=== PATIENT | female | born 1960 | race Caucasian/White ===

== ENCOUNTER 2021-02-12 11:29 | Inpatient (IN) | payer MEDICARE ==
[~2021-02-12] VITALS: Ht 165.1 cm; Wt 83.9 kg
[~2021-02-12 11:29] MED LIST: OMEPRAZOLE
[2021-02-12] MEDS ORDERED: SODIUM CHLORIDE 0.9% 1,000 ML IV ONE ×2 (11:45→18:00)
[2021-02-12 12:21] LABS: Basophils # (auto) 0.1 10 ^3/uL (0-0.2); Basophils % (auto) 1.1 % (0.0-2.0); Eosinophils # (auto) 0.2 10 ^3/uL (0-0.8); Eosinophils % (auto) 2.7 % (0.0-7.0); Hematocrit 44.9 % (36.0-46.0); Hemoglobin 15.6 g/dL (12.2-16.2); Lymphocytes # (auto) 2.2 10 ^3/uL (0.4-5.4); Lymphocytes % (auto) 25.9 % (10.0-50.0); Mean Corpuscular Hemoglobin 30.9 pg (28.0-32.0); Mean Corpuscular Hgb Conc. 34.8 g/dL (32.0-36.0); Mean Corpuscular Volume 88.9 fL (80.0-100.0); Monocytes # (auto) 0.5 10 ^3/uL (0-1.3); Monocytes % (auto) 6.1 % (0.0-12.0); Neutrophils # (auto) 5.5 10 ^3/uL (1.6-8.6); Neutrophils % (auto) 64.2 % (37.0-80.0); Nucleated Red Blood Cells % 0.1 %; Red Blood Cells 5.05 10^6/uL (4.0-5.20); Red Cell Distribution Width 13.7 % (11.8-14.3); White Blood Cell 8.6 10^3/uL (4.4-10.8)
[2021-02-12 12:36] LABS: INR 1.05 (0.9-1.15); Partial Thromboplastin Time 24.5 sec (23.6-33.0)
[2021-02-12 12:41] LABS: Albumin 3.3 g/dL (3.4-5.0); Anion Gap 9 (5-15); Blood Urea Nitrogen 18 mg/dL (7-18); Carbon Dioxide 25 mmol/L (21-32); Chloride 102 mmol/L (98-107); Glucose 111 mg/dL (74-106); Sodium 136 mmol/L (136-145)
[2021-02-12] MEDS ORDERED: FUROSEMIDE 20 MG/2 ML VIAL IV ONE (12:45)
[2021-02-12] MEDS ORDERED: cefTRIAXone 1GM/50ML D5W 50 ML IV ONE (12:45)
[2021-02-12 12:47] LABS: Alanine Aminotransferase 79 U/L (13-56); Alkaline Phosphatase 91 U/L (45-117); Aspartate Aminotransferase 48 U/L (15-37); Bilirubin, Total 0.5 mg/dL (0.2-1.0); GFR African American 126 mL/min; GFR Non-African American 104 mL/min; Total Protein 6.5 g/dL (6.4-8.2)
[2021-02-12 12:54] LABS: Potassium 2.7 mmol/L (3.5-5.1)
[2021-02-12] MEDS ORDERED: POTASSIUM CHL 20MEQ/100ML 100 ML IV ONE (13:00)
[2021-02-12] MEDS ORDERED: POTASSIUM EFFERVESENT TAB 25 MEQ PO ONE (13:00)
[2021-02-12 16:00] LABS: Urine Bacteria FEW /hpf (None Seen); Urine Blood Negative /uL (Negative); Urine Mucus FEW (None Seen); Urine Specific Gravity 1.008 (1.001-1.035); Urine WBC 2 /hpf (0 - 5)
[2021-02-12] MEDS: POTASSIUM CHL 20MEQ/100ML 100 ML IV SCH (16:15)
[2021-02-12] MEDS ORDERED: ENOXAPARIN SOD 100 MG/1 ML SYRINGE SC ONE (16:15)
[2021-02-12] MEDS ORDERED: MAGNESIUM SULFATE 1GM/100ML 100 ML IV ONE (16:15)
[2021-02-12] MEDS ORDERED: MORPHINE SULFATE INJECTION 2 MG/ML SYRG IV PRN ×3 (16:30→18:00)
[2021-02-12] MEDS ORDERED: NITROGLYCERIN 0.4 MG SL TAB SL PRN ×2 (16:30→18:00)
[2021-02-12] MEDS ORDERED: ASPirin 81 mg TAB PO ONE (18:00)
[2021-02-12] MEDS ORDERED: hydrALAZINE HCL 20 MG/ML VL IV PRN (18:00)
[2021-02-12] MEDS ORDERED: ATORVASTATIN 20 MG TAB PO ONE (18:00)
[2021-02-12] MEDS ORDERED: ALUM & MAG HYDROX-SIMETH LIQ(MAALOX) 30 ML PO PRN (18:00)
[2021-02-12] MEDS ORDERED: DEXTROSE (50%) 50ML SYRG IV PRN (18:00)
[2021-02-12] MEDS ORDERED: LORazepam 0.5 MG TAB PO PRN (18:00)
[2021-02-12] MEDS ORDERED: DOCUSATE SOD 100 MG CAP PO PRN (18:00)
[2021-02-12] MEDS ORDERED: metroNIDAZOLE 500MG/100ML 100 ML IV ONE (18:00)
[2021-02-12] MEDS ORDERED: ONDANSETRON HCL 4 MG/2 ML VIAL IV PRN (18:00)
[2021-02-12] MEDS ORDERED: METOPROLOL TARTRATE 25 MG TAB PO ONE (18:00)
[2021-02-12] MEDS: SODIUM CHLORIDE 0.9% 1,000 ML IV SCH (18:26)
[2021-02-12 18:37] LABS: Alcohol, Urine < 3.0 mg/dL (0-10); Amphetamine Screen, Urine POSITIVE (NEGATIVE); Barbiturate Scree,Urine NEGATIVE (NEGATIVE); Benzodiazephine Screen, Urine NEGATIVE (NEGATIVE); Cannabinoid Screen, Urine NEGATIVE (NEGATIVE); Cocaine Screen, Urine NEGATIVE (NEGATIVE); Opiate Scree,Urine NEGATIVE (NEGATIVE); Phencyclidine Screen, Urine NEGATIVE (NEGATIVE)
[2021-02-12 18:39] LABS: Sodium Urine 13 mmol/L (40-220)
[2021-02-12] MEDS: HYDROcodone-ACET 5/325MG TAB PO PRN (19:00)
[2021-02-12 20:30] VITALS: BP 136/69
[2021-02-12] MEDS ORDERED: POTASSIUM PHOSPHATE 22 MEQ in SODIUM CHL 0.9% 100 ML IV ONE (21:00)
[2021-02-12 22:00] VITALS: BP 97/52
[2021-02-12] MEDS: ACCU-CHEK COMFORT CURVE STRIP VI SCH (22:07)
[2021-02-12] MEDS: FLORASTOR (S. BOULARDII) 250 MG CAP PO SCH (22:10)
[2021-02-12] MEDS: FAMOTIDINE (10MG/ML) 2ML VL IV SCH (22:10)
[2021-02-12] MEDS: InsuLIN REG 1unit/0.01ml Soln (100units/ml) SC SCH (22:15)
[2021-02-12 23:07] LABS: Cholesterol 142 mg/dL (< 200); Magnesium 2.3 mg/dL (1.6-2.6)
[2021-02-12 23:11] LABS: Phosphorus 3.6 mg/dL (2.5-4.90)
[2021-02-12 23:24] LABS: HDL Cholesterol 33 mg/dL (40-59); LDL Cholesterol 83 mg/dL (< 100); Triglycerides 275 mg/dL (< 150)
[2021-02-13] MEDS: POTASSIUM CHL 20MEQ/100ML 100 ML IV SCH ×2 (00:30→03:12)
[2021-02-13] MEDS: HYDROcodone-ACET 5/325MG TAB PO PRN ×2 (00:47→15:16)
[2021-02-13] MEDS: metroNIDAZOLE 500MG/100ML 100 ML IV SCH ×3 (01:53→18:13)
[2021-02-13] MEDS: SODIUM CHLORIDE 0.9% 1,000 ML IV SCH ×2 (01:56→19:00)
[2021-02-13] MEDS ORDERED: POTASSIUM CHL 20MEQ/100ML 100 ML IV SCH (03:15)
[2021-02-13] MEDS ORDERED: DULA1INJ SC (03:50)
[2021-02-13] MEDS ORDERED: ATOR10TA52 PO (03:50)
[2021-02-13] MEDS ORDERED: GLIP5TAB12 PO (03:50)
[2021-02-13] MEDS ORDERED: CYCL-839 PO (03:50)
[2021-02-13] MEDS ORDERED: METF-370 PO (03:50)
[2021-02-13] MEDS ORDERED: PANT1INJ3 IV (03:50)
[2021-02-13] MEDS ORDERED: PANT40TA2 PO (03:50)
[2021-02-13 05:00] VITALS: BP 112/52
[2021-02-13 06:42] LABS: Basophils # (auto) 0.1 10 ^3/uL (0-0.2); Basophils % (auto) 0.8 % (0.0-2.0); Eosinophils # (auto) 0.2 10 ^3/uL (0-0.8); Eosinophils % (auto) 3.1 % (0.0-7.0); Hematocrit 42.1 % (36.0-46.0); Hemoglobin 14.6 g/dL (12.2-16.2); Lymphocytes # (auto) 1.9 10 ^3/uL (0.4-5.4); Lymphocytes % (auto) 29.3 % (10.0-50.0); Mean Corpuscular Hemoglobin 31.3 pg (28.0-32.0); Mean Corpuscular Hgb Conc. 34.7 g/dL (32.0-36.0); Mean Corpuscular Volume 90.3 fL (80.0-100.0); Monocytes # (auto) 0.4 10 ^3/uL (0-1.3); Monocytes % (auto) 5.8 % (0.0-12.0); Neutrophils # (auto) 3.9 10 ^3/uL (1.6-8.6); Nucleated Red Blood Cells % 0.3 %; Red Blood Cells 4.66 10^6/uL (4.0-5.20); Red Cell Distribution Width 13.9 % (11.8-14.3); White Blood Cell 6.3 10^3/uL (4.4-10.8)
[2021-02-13 06:58] LABS: INR 1.03 (0.9-1.15); Partial Thromboplastin Time 27.6 sec (23.6-33.0)
[2021-02-13 07:04] LABS: Albumin 2.5 g/dL (3.4-5.0); Anion Gap 7 (5-15); Blood Urea Nitrogen 13 mg/dL (7-18); Calcium 7.8 mg/dL (8.5-10.1); Carbon Dioxide 23 mmol/L (21-32); Chloride 109 mmol/L (98-107); Glucose 243 mg/dL (74-106); Sodium 139 mmol/L (136-145)
[2021-02-13 07:07] LABS: Alanine Aminotransferase 66 U/L (13-56); BUN/Creatinine Ratio 23.6; GFR African American 145 mL/min; GFR Non-African American 119 mL/min
[2021-02-13 07:19] LABS: Alkaline Phosphatase 80 U/L (45-117); Aspartate Aminotransferase 47 U/L (15-37); Bilirubin, Total 0.3 mg/dL (0.2-1.0); Phosphorus 2.6 mg/dL (2.5-4.90); Total Protein 5.4 g/dL (6.4-8.2)
[2021-02-13 08:00] VITALS: BP 109/54
[2021-02-13] MEDS: cefTRIAXone 1GM/50ML D5W 50 ML IV SCH (09:20)
[2021-02-13] MEDS: FAMOTIDINE (10MG/ML) 2ML VL IV SCH ×2 (10:00→21:33)
[2021-02-13] MEDS: ENOXAPARIN SOD 40 MG/0.4 ML SYRINGE SC SCH (10:01)
[2021-02-13] MEDS: FLORASTOR (S. BOULARDII) 250 MG CAP PO SCH ×2 (10:01→21:33)
[2021-02-13] MEDS: ASPirin 81 mg TAB PO SCH (10:01)
[2021-02-13] MEDS: ACCU-CHEK COMFORT CURVE STRIP VI SCH ×3 (11:41→21:33)
[2021-02-13] MEDS: InsuLIN REG 1unit/0.01ml Soln (100units/ml) SC SCH ×3 (11:41→21:32)
[2021-02-13 12:00] VITALS: BP 98/56
[2021-02-13 13:46] LABS: Hepatitis A Ab IgM Negative
[2021-02-13 14:01] LABS: Hepatitis B Core IgM Negative
[2021-02-13 14:23] LABS: Hepatitis C Antibody Negative (Negative)
[2021-02-13] MEDS ORDERED: NICOTINE 21MG/24 HR TOPICAL PATCH TD ONE (14:45)
[2021-02-13 16:00] VITALS: BP 106/59
[2021-02-13 18:00] VITALS: BP 117/55
[2021-02-13] MEDS ORDERED: ATORVASTATIN 20 MG TAB PO SCH (22:00)
[2021-02-14] MEDS: SODIUM CHLORIDE 0.9% 1,000 ML IV SCH (02:12)
[2021-02-14] MEDS: metroNIDAZOLE 500MG/100ML 100 ML IV SCH (02:17)
[2021-02-14 05:00] VITALS: BP 137/85
[2021-02-14 05:26] LABS: Albumin 2.2 g/dL (3.4-5.0); BUN/Creatinine Ratio 17.5; Calcium 7.6 mg/dL (8.5-10.1); Potassium 3.9 mmol/L (3.5-5.1)
[2021-02-14 05:29] LABS: Bilirubin, Total 0.3 mg/dL (0.2-1.0); Total Protein 4.8 g/dL (6.4-8.2)
[2021-02-14] MEDS: InsuLIN REG 1unit/0.01ml Soln (100units/ml) SC SCH ×3 (06:27→17:00)
[2021-02-14] MEDS: HYDROcodone-ACET 5/325MG TAB PO PRN ×2 (06:28→16:37)
[2021-02-14] MEDS: ACCU-CHEK COMFORT CURVE STRIP VI SCH ×3 (06:29→17:00)
[2021-02-14] MEDS: cefTRIAXone 1GM/50ML D5W 50 ML IV SCH (08:48)
[2021-02-14 09:00] VITALS: BP 113/53
[2021-02-14] MEDS ORDERED: SACC250C PO (09:51)
[2021-02-14] MEDS ORDERED: LEVO500T31 PO (09:51)
[2021-02-14] MEDS ORDERED: NIC21P TOP (09:51)
[2021-02-14] MEDS: ASPirin 81 mg TAB PO SCH (10:00)
[2021-02-14] MEDS: FLORASTOR (S. BOULARDII) 250 MG CAP PO SCH (10:00)
[2021-02-14] MEDS: FAMOTIDINE (10MG/ML) 2ML VL IV SCH (10:00)
[2021-02-14] MEDS ORDERED: NICOTINE 21MG/24 HR TOPICAL PATCH TD SCH (10:00)
[2021-02-14] MEDS: ENOXAPARIN SOD 40 MG/0.4 ML SYRINGE SC SCH (10:00)
[2021-02-14 12:00] VITALS: BP 117/60
[2021-02-14 13:00] VITALS: BP 117/60
[2021-02-14 17:00] VITALS: BP_SYST 122; BP_SYST 133; BP_DIAS 69; BP_DIAS 74
== END 2021-02-14 17:40 | disposition home or self-care (01) | DRG 917 ==
LOC: ER 11:29 → TELE 16:16 → TELE-WESTW 20:00 → WEST WING 02-14 09:32
PROVIDERS: ADMIT Hospitalist; ATTEND Internal Medicine
DX: T43.621A Poisoning by amphetamines, accidental (unintentional), initial encounter (principal); G92.8 Other toxic encephalopathy; E44.1 Mild protein-calorie malnutrition; G45.9 Transient cerebral ischemic attack, unspecified; F23 Brief psychotic disorder; N39.0 Urinary tract infection, site not specified; R07.89 Other chest pain; E87.6 Hypokalemia; K21.9 Gastro-esophageal reflux disease without esophagitis; B96.20 Unspecified Escherichia coli [E. coli] as the cause of diseases classified elsewhere; E11.9 Type 2 diabetes mellitus without complications; E66.01 Morbid (severe) obesity due to excess calories; E78.5 Hyperlipidemia, unspecified; F15.10 Other stimulant abuse, uncomplicated; F17.210 Nicotine dependence, cigarettes, uncomplicated; I10 Essential (primary) hypertension; R29.6 Repeated falls; Z86.19 Personal history of other infectious and parasitic diseases; Z86.73 Personal history of transient ischemic attack (TIA), and cerebral infarction without residual deficits; Z87.820 Personal history of traumatic brain injury; Z87.828 Personal history of other (healed) physical injury and trauma; Z91.19 Patient's noncompliance with other medical treatment and regimen; Y92.89 Other specified places as the place of occurrence of the external cause; Z71.51 Drug abuse counseling and surveillance of drug abuser; Z68.30 Body mass index [BMI] 30.0-30.9, adult; Z88.0 Allergy status to penicillin
CPT/HCPCS: 36415; 70450; 71045; 74176; 80053; 80061; 80074; 80307; 80320; 81001; 82550; 82728; 82962; 83036; 83735; 83880; 84100; 84133; 84300; 84439; 84443; 84484; 85025; 85610; 85730; 86141; 87040; 87086; 87088; 87186; 87426; 93005; 93306; 96361; 96365; G0378; J0696; J1815; J3480; J3490